=== PATIENT | female | born 1950 | race American Indian/Alaskan Native ===

== ENCOUNTER 2017-08-20 21:02 | Emergency (ER) | payer BC, OTHER ==
[2017-08-20 22:03] LABS: Basophils # (Auto) 0.2 K/mm3 (0.0-0.1); Basophils % (Auto) 2.9 % (0.0-1.8); Eosinophils # (Auto) 0.1 K/mm3 (0.0-0.4); Eosinophils % (Auto) 1.7 % (0.0-4.3); Hematocrit 36.7 % (30.3-42.9); Hemoglobin 12.4 gm/dl (10.1-14.3); Lymphocytes # (Auto) 1.8 K/mm3 (1.2-5.4); Lymphocytes % (Auto) 23.1 % (13.4-35.0); Mean Corpuscular HGB Conc 34 % (30-34); Mean Corpuscular Hemoglobin 30 pg (28-32); Mean Corpuscular Volume 90 fl (79-97); Monocytes # (Auto) 0.5 K/mm3 (0.0-0.8); Monocytes % (Auto) 6.8 % (0.0-7.3); Platelet Count 241 K/mm3 (140-440); Red Blood Count 4.07 M/mm3 (3.65-5.03); Red Cell Distribution Width 13.4 % (13.2-15.2)
--- NOTE | 2017-08-20 22:25 | Cat Scan Report ---
FINAL REPORT PROCEDURE: CT ABDOMEN PELVIS WO CON TECHNIQUE: Computerized axial tomography of the abdomen and pelvis was performed without intravenous contrast. This study is performed without intravascular contrast material and its sensitivity for abdominal and pelvic pathology, including neoplasms, inflammation, abscess, free fluid, thrombosis, arterial dissection and infarction, is reduced compared with a contrast enhanced study. HISTORY: Left Flank pain blood in urine COMPARISON: No prior studies are available for comparison. FINDINGS: There is diffuse fatty infiltration of liver. Spleen, pancreas and right adrenal gland are within normal limits. 9 millimeter hypodense nodule is noted in the left adrenal consistent with an adenoma. Bilateral kidneys demonstrate normal density without calculi. There is mild degree of prominence of the left collecting system compared to the right.. Multiple phleboliths are identified in the pelvis. Aorta is of normal caliber. There is no free fluid or free air. Status post cholecystectomy. Small bowel loops are within normal limits moderate degree residual stool is noted. Appendix is normal. Vertebral height is normal. IMPRESSION: There is mild prominence of the left collecting system compared to that of right. This may represent a recently passed left urinary calculus. No obvious obstructive lesion at the present time Small left adrenal adenoma Fatty infiltration of liver.
[2017-08-20 22:26] LABS: Alanine Aminotransferase 49 units/L (7-56); Albumin 4.2 g/dL (3.9-5); BUN/Creatinine Ratio 20; Blood Urea Nitrogen 16 mg/dL (7-17); Calcium 8.8 mg/dL (8.4-10.2); Hemolysis Index 6
[2017-08-20 22:58] LABS: RBC,Urine < 1.0 /HPF (0.0-6.0)
[2017-08-20 23:04] LABS: Bilirubin,Urine NEG (Negative); Blood,Urine MOD (Negative); Color,Urine Straw (Yellow); Protein,Urine <15 mg/dL mg/dL (Negative); Urobilinogen,Urine < 2.0 mg/dL (<2.0); WBC,Urine < 1.0 /HPF (0.0-6.0)
[2017-08-21] MEDS ORDERED: TORADOL IV ONE (00:52)
[2017-08-21] MEDS ORDERED: FLEXERIL PO ONE (00:53)
--- NOTE | 2017-08-21 01:15 | Emergency Department Report ---
ED Back Pain/Injury HPI - General Chief Complaint: Abdominal Pain Stated Complaint: LEFT LEG,SIDE,BACK PAIN Time Seen by Provider: 08/21/17 00:31 Source: patient Limitations: No Limitations - History of Present Illness Initial Comments: No recent back trauma MD Complaint: back pain Onset/Timin (day) -: Gradual Place: home (she said it happened while she was getting dressed) Radiation: buttocks, left leg Severity: severe Quality: sharp Consistency: constant Improves With: none Worsens With: movement Associated Symptoms: denies other symptoms Treatments Prior to Arrival: other medications (topical muscle relaxant) - Related Data Previous Rx's Medication Instructions Recorded Last Taken Type Cyclobenzaprine HCl [Flexeril 5 MG 5 mg PO TID #30 tab 08/21/17 Unknown Rx TAB] Allergies Allergy/AdvReac Type Severity Reaction Status Date / Time iodine Allergy Swelling,PA Unverified 02/26/15 06:55 IN [id number] Reductase Allergy BODY PAIN Unverified 02/26/15 06:55 Inhibitor Sulfa (Sulfonamide Allergy Swelling,CO Unverified 02/26/15 06:55 Antibiotics) UGHING,ITCH ING ED Review of Systems ROS: Stated complaint: LEFT LEG,SIDE,BACK PAIN Other details as noted in HPI Comment: All other systems reviewed and negative ED Past Medical Hx - Past Medical History Previous Medical History?: Yes Hx Hypertension: Yes Hx Diabetes: Yes Additional medical history: Pancreatitis, Spinal fusions, Hysterectomy, Gall Bladder removed - Surgical History Past Surgical History?: Yes Hx Cholecystectomy: Yes Additional Surgical History: Hysterectomy, Spinal Fusions, Hysterectomy - Social History Smoking Status: Never Smoker Substance Use Type: None - Medications Home Medications: Home Medications Medication Instructions Recorded Confirmed Last Taken Type Cyclobenzaprine HCl [Flexeril 5 MG 5 mg PO TID #30 tab 08/21/17 Unknown Rx TAB] ED Physical Exam - General Limitations: No Limitations General appearance: alert, in no apparent distress - Head Head exam: Present: atraumatic, normocephalic - Eye Eye exam: Present: normal appearance - ENT ENT exam: Present: mucous membranes moist - Neck Neck exam: Present: normal inspection - Respiratory Respiratory exam: Present: normal lung sounds bilaterally. Absent: respiratory distress - Cardiovascular Cardiovascular Exam: Present: regular rate, normal rhythm. Absent: systolic murmur, diastolic murmur, rubs, gallop - GI/Abdominal GI/Abdominal exam: Present: soft, normal bowel sounds. Absent: distended - Rectal Rectal exam: Present: deferred - Extremities Exam Extremities exam: Present: normal inspection - Back Exam Back exam: Present: normal inspection, tenderness (tenderness of the paraspinal lumbar muscles on both sides), paraspinal tenderness (lumbar muscle), other ( negative straight leg raise sign) - Neurological Exam Neurological exam: Present: alert, oriented X3 - Psychiatric Psychiatric exam: Present: normal affect, normal mood - Skin Skin exam: Present: warm, dry, intact, normal color. Absent: rash ED Course Vital Signs 08/20/17 21:42 Temperature 98.4 F Pulse Rate 97 H Respiratory 20 Rate Blood Pressure 148/92 O2 Sat by Pulse 97 Oximetry ED Medical Decision Making - Lab Data Result diagrams: 08/20/17 21:53 08/20/17 21:53 Critical care attestation.: If time is entered above; I have spent that time in minutes in the direct care of this critically ill patient, excluding procedure time. ED Disposition Clinical Impression: Muscle spasm Disposition: DC-01 TO HOME OR SELFCARE Is pt being admited?: No Does the pt Need Aspirin: No Condition: Stable Instructions: Muscle Spasm (ED) Prescriptions: Cyclobenzaprine HCl [Flexeril 5 MG TAB] 5 mg PO TID #30 tab Time of Disposition: 01:27 Print Language: WOLOF
[2017-08-21] MEDS ORDERED: MORPHINE IV ONE (01:57)
[2017-08-21] MEDS ORDERED: ZOFRAN IV ONE (01:57)
[2017-08-21 02:37] VITALS: BP 132/77
== END 2017-08-21 02:30 | disposition home or self-care (01) ==
LOC: ED 21:02
DX: M62.838 Other muscle spasm (principal); I10 Essential (primary) hypertension; E11.9 Type 2 diabetes mellitus without complications; Z90.710 Acquired absence of both cervix and uterus; Z90.49 Acquired absence of other specified parts of digestive tract; Z88.2 Allergy status to sulfonamides; Z88.8 Allergy status to other drugs, medicaments and biological substances
CPT/HCPCS: 36415; 74176; 80053; 81001; 83690; 85025; 96374; 96375; 99284; J1885; J2270; J2405